=== PATIENT | female | born 1985 | race Two or more races ===

== ENCOUNTER 2021-07-08 18:26 | Emergency (ER) | payer MEDICAID, OTHER ==
[~2021-07-08] VITALS: Ht 152.4 cm; Wt 63.0 kg
[2021-07-08 18:29] VITALS: BP 127/82
[2021-07-08] MEDS ORDERED: ACETAMINOPHEN 325 MG TAB PO ONE (21:45)
[2021-07-08] MEDS ORDERED: CYCLOBENZAPRINE HCL 10 MG TAB PO ONE (21:45)
== END 2021-07-08 23:30 | disposition home or self-care (01) ==
LOC: ER 18:26
DX: S69.92XA Unspecified injury of left wrist, hand and finger(s), initial encounter (principal); F07.81 Postconcussional syndrome; V49.9XXA Car occupant (driver) (passenger) injured in unspecified traffic accident, initial encounter; Y93.89 Activity, other specified; Y92.89 Other specified places as the place of occurrence of the external cause; Y99.8 Other external cause status
CPT/HCPCS: 70450; 72125; 73090; 73110; 73130

== ENCOUNTER → 2021-10-05 | Outpatient (CLI) | payer MEDICAID ==
[~2021-10-05] VITALS: Ht 160 cm; Wt 63.5 kg
== END | disposition home or self-care (01) ==
LOC: Rad HDHVI 09:56
PROVIDERS: ATTEND Internal Medicine
DX: R07.9 Chest pain, unspecified (principal); R06.02 Shortness of breath; R42 Dizziness and giddiness
CPT/HCPCS: 93017

== ENCOUNTER → 2021-10-12 | Outpatient (CLI) | payer MEDICAID | END | disposition home or self-care (01) | LOC: Rad HDHVI 11:06 | PROVIDERS: ATTEND Internal Medicine | DX: R07.89 Other chest pain (principal); R42 Dizziness and giddiness | CPT/HCPCS: 93306 ==